=== PATIENT | female | born 1970 | race Caucasian/White ===

== ENCOUNTER 2021-08-31 02:52 | Emergency (ER) | payer OTHER ==
[~2021-08-31] VITALS: Ht 162.6 cm; Wt 69.4 kg
[2021-08-31] MEDS ORDERED: SUMATRIPTAN SUCCINATE 6 MG/0.5 ML VIAL SQ ONE ×2 (03:29→03:30)
[2021-08-31] MEDS ORDERED: IV NS 0.9% 1,000 ML BAG IV ONE (03:30)
[2021-08-31] MEDS ORDERED: METOCLOPRAMIDE HCL 10 MG/2 ML VIAL IV ONE (03:30)
[2021-08-31] MEDS ORDERED: METOCLOPRAMIDE HCL 10 MG/2 ML VIAL ONE (03:30)
--- NOTE | 2021-08-31 03:35 | NUR ---
PT BIB SPOUSE. A/O X 3 C/O MIGRAINE, N/V STARTED TODAY AT APPROX 1600 PER PT.
[2021-08-31] MEDS ORDERED: SUMA100T16 PO (04:01)
[2021-08-31] MEDS ORDERED: ONDA4TAB11 PO (04:01)
--- NOTE | 2021-08-31 04:30 | NUR ---
PT STATES FEELS BETTER MD AWARE
--- NOTE | 2021-08-31 04:50 | NUR ---
DC INSTRUCTIONS GIVEN TO PT PT V/S STABLE
--- NOTE | 2021-08-31 04:57 | NUR ---
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 PT LEFT AMBULATING IN STABLE CONDITION
[2021-08-31 04:58] VITALS: BP 140/78
== END 2021-08-31 05:00 | disposition home or self-care (01) ==
LOC: ER 02:59
DX: G43.909 Migraine, unspecified, not intractable, without status migrainosus (principal); A05.9 Bacterial foodborne intoxication, unspecified
CPT/HCPCS: 96361; 96372; 96374; 99284; J2765; J3030; J7030